=== PATIENT | male | born 1985 | race Caucasian/White ===

== ENCOUNTER 2017-08-11 11:24 | Emergency (ER) | payer SELFPAY ==
[~2017-08-11] VITALS: Ht 180.3 cm; Wt 68.0 kg
[2017-08-11 11:27] VITALS: BP 135/94; PULSE 85; RESP 13; TEMP 99.2; O2SAT 98
--- NOTE | 2017-08-11 11:41 | PD ---
HPI Chief Complaint: Pain: Acute or Chronic Time Seen by Provider: 11:32 Travel History International Travel<30 days: No Contact w/Intl Traveler<30days: No Traveled to known affect area: No History of Present Illness HPI 31-year-old male presents the emergency department with one week history of right hip pain. Patient states he moved a fish tank at his home about a week ago with sudden onset of right-sided hip pain. Patient states the pain is continued and not improved, to the point of disrupting his sleep and having difficulty finding a comfortable position. Patient denies numbness or tingling. He denies back pain. Pain is specific to the right hip. He has no signs of infection. He has no known drug allergies. [facility] Social History Alcohol Use: Yes Tobacco Use: Yes Substance Use: Yes Allergies-Medications (Allergen,Severity, Reaction): Coded Allergies: No Known Allergies (Verified Allergy, Unknown, 08/11/17) Reported Meds & Prescriptions Reported Meds & Active Scripts Active Mapap Extra Strength (Acetaminophen) 500 Mg Tab 1,000 Mg PO Q6HR PRN Flexeril (Cyclobenzaprine HCl) 10 Mg Tab 10 Mg PO TID Ibuprofen 800 Mg Tab 800 Mg PO Q8H PRN Review of Systems Except as stated in HPI: all other systems reviewed are Neg General / Constitutional: No: Fever Eyes: No: Visual changes HENT: No: Headaches Cardiovascular: No: Chest Pain or Discomfort Respiratory: No: Shortness of Breath Gastrointestinal: No: Abdominal Pain Genitourinary: No: Dysuria Musculoskeletal: Positive: Myalgias, Arthralgias, Limited ROM, Pain (see history of present illness) Skin: No Rash Neurologic: No: Weakness Psychiatric: No: Depression Endocrine: No: Polydipsia Hematologic/Lymphatic: No: Easy Bruising Physical Exam Narrative GENERAL: Patient is in moderate distress. SKIN: Warm and dry. Normal color. Normal turgor. No signs of infection. HEAD: Atraumatic. Normocephalic. EYES: Pupils equal and round. No scleral icterus. No injection or drainage. ENT: No nasal bleeding or discharge. Mucous membranes pink and moist. Pharynx is clear. Airway is patent. NECK: Trachea midline. Supple and nontender. CARDIOVASCULAR: Regular rate and rhythm. RESPIRATORY: No accessory muscle use. Clear to auscultation. Breath sounds equal bilaterally. MUSCULOSKELETAL: Extremities without clubbing, cyanosis, or edema. No obvious deformities. No significant low back pain is appreciated with palpation. Patient has right hip pain with palpation of the deep structures, as well as with flexion, extension, and rotation of the right hip. Pain is not localized to the bursa, but rather the hip capsule. There is no pain in the hamstrings or quadriceps. There is no ecchymosis distally. NEUROLOGICAL: Awake and alert. No obvious cranial nerve deficits. Motor grossly within normal limits. Five out of 5 muscle strength in the arms and legs. Normal speech. PSYCHIATRIC: Appropriate mood and affect; insight and judgment normal. Data Data Last Documented VS Vital Signs Date Time Temp Pulse Resp B/P (MAP) Pulse Ox O2 Delivery O2 Flow Rate FiO2 08/11/17 11:27 99.2 85 13 135/94 (108) 98 Orders Orders Ed Discharge Order (08/11/17 11:48) [facility] Medical Decision Making Medical Screen Exam Complete: Yes Emergency Medical Condition: Yes Differential Diagnosis Left hip sprain.. Muscle sprain. Sciatica. Bursitis. Tendinitis. Narrative Course Patient is medically stable at time of exam Radiographic imaging is not felt warranted based on my history and physical. Patient was treated with ibuprofen 800 mg up to 3 times daily with food #60. Patient also given Flexeril 10 mg up to 3 times daily #30. Patient also given Mapap, 500 mg 2 tabs every 6 hours when necessary #90. Patient use heat followed by ice as well as gentle stretching. Patient follow with [facility] as needed. Diagnosis Primary Impression: Sprain of right hip Qualified Codes: S73.101A - Unspecified sprain of right hip, initial encounter Referrals: [facility] Patient Instructions: General Instructions, Muscle Spasm (ED), Piriformis Syndrome (ED), Piriformis Syndrome Exercises (GEN) Additional Instructions: Radiographic imaging is not felt warranted based on my history and physical. Patient was treated with ibuprofen 800 mg up to 3 times daily with food #60. Patient also given Flexeril 10 mg up to 3 times daily #30. Patient also given Mapap, 500 mg 2 tabs every 6 hours when necessary #90. Patient use heat followed by ice as well as gentle stretching. Patient follow with [facility] as needed. Med/Other Pt SpecificInfo: Prescription(s) given Scripts Acetaminophen (Mapap Extra Strength) 500 Mg Tab 1000 MG PO Q6HR Y for PAIN, #90 TAB 0 Refills Prov: Jason Pace MD 08/11/17 Cyclobenzaprine (Flexeril) 10 Mg Tab 10 MG PO TID for Muscle Spasm, #30 TAB 0 Refills Prov: Jason Pace MD 08/11/17 Ibuprofen (Ibuprofen) 800 Mg Tab 800 MG PO Q8H Y for Pain/Inflammation, #60 TAB 0 Refills Prov: Jason Pace MD 08/11/17 Disposition: 01 DISCHARGE HOME Condition: Stable Shaggy Guillaume Aug 11, 2017 11:41
[2017-08-11] MEDS ORDERED: CYCL10TA PO (11:44)
[2017-08-11] MEDS ORDERED: MAPA500T13 PO (11:44)
[2017-08-11] MEDS ORDERED: IBUP1TAB7 PO (11:44)
[2017-08-11] MEDS ORDERED: IBUPROFEN 800 MG TAB PO ONE (12:15)
== END 2017-08-11 12:17 | disposition home or self-care (01) ==
LOC: NEPK 11:24
DX: S73.101A Unspecified sprain of right hip, initial encounter (principal); Z72.0 Tobacco use; X50.0XXA Overexertion from strenuous movement or load, initial encounter
CPT/HCPCS: 99283

== ENCOUNTER 2017-12-31 10:33 | Emergency (ER) | payer OTHER ==
[~2017-12-31] VITALS: Ht 180.3 cm; Wt 85.0 kg
[~2017-12-31 10:33] MED LIST: CYCL10TA PO; IBUP1TAB7 PO; MAPA500T13 PO
[2017-12-31 10:42] VITALS: BP 137/79; PULSE 117; RESP 17; TEMP 98.4; O2SAT 97
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
== END 2017-12-31 13:55 ==
LOC: NEPC 10:33
DX: S91.311A Laceration without foreign body, right foot, initial encounter (principal); S00.83XA Contusion of other part of head, initial encounter; F17.210 Nicotine dependence, cigarettes, uncomplicated; Y04.2XXA Assault by strike against or bumped into by another person, initial encounter
CPT/HCPCS: 12001; 70450; 70486

== ENCOUNTER 2018-02-20 08:49 | Inpatient (IN) | payer OTHER ==
[~2018-02-20] VITALS: Ht 180.3 cm; Wt 90.0 kg
[2018-02-20 09:00] VITALS: BP 128/70; PULSE 75; RESP 18; TEMP 98.4; O2SAT 96
--- NOTE | 2018-02-20 09:20 | PD ---
HPI Chief Complaint: Musculoskeletal Complaint Time Seen by Provider: 09:09 Travel History International Travel<30 days: No Contact w/Intl Traveler<30days: No Traveled to known affect area: No History of Present Illness HPI 32-year-old male complains of right ankle pain. Patient fell this morning. Patient denies any loss of consciousness. Patient denies headache or neck pain. Patient denies any chest pain or shortness of breath. Patient denies abdominal pain. Patient complains severe sharp pain localized the right ankle. Patient denies any pain radiation. Patient states that the pain is worse with weightbearing. On a scale of 1-10 the pain is a 9. Patient last meal was 5:00 o'clock this morning. Patient denies any medical problem. Patient is not on any routine medications. Patient denies any allergy. [facility] Social History Alcohol Use: Yes (1/5 of vodka daily) Tobacco Use: Yes (5/day) Substance Use: Yes (heroine) Allergies-Medications (Allergen,Severity, Reaction): Coded Allergies: No Known Allergies (Verified Allergy, Unknown, 08/11/17) Reported Meds & Prescriptions Reported Meds & Active Scripts Active No Active Prescriptions or Reported Medications Review of Systems General / Constitutional: No: Fever Eyes: No: Visual changes HENT: No: Headaches Cardiovascular: No: Chest Pain or Discomfort Respiratory: No: Shortness of Breath Gastrointestinal: No: Abdominal Pain Genitourinary: No: Dysuria Musculoskeletal: Positive: Pain Skin: No Rash Neurologic: No: Weakness Psychiatric: No: Depression Endocrine: No: Polydipsia Hematologic/Lymphatic: No: Easy Bruising Physical Exam Narrative GENERAL: Well-nourished, well-developed patient. SKIN: Focused skin assessment warm/dry. HEAD: Normocephalic. EYES: No scleral icterus. No injection or drainage. NECK: Supple, trachea midline. No JVD or lymphadenopathy. CARDIOVASCULAR: Regular rate and rhythm without murmurs, gallops, or rubs. RESPIRATORY: Breath sounds equal bilaterally. No accessory muscle use. GASTROINTESTINAL: Abdomen soft, non-tender, nondistended. MUSCULOSKELETAL: Patient had marked soft tissue swelling tenderness diffuse over the right ankle joint. Full range of motion of the toes. Good DP pulse BACK: Nontender without obvious deformity. No CVA tenderness. Data Data Last Documented VS Vital Signs Date Time Temp Pulse Resp B/P (MAP) Pulse Ox O2 Delivery O2 Flow Rate FiO2 02/20/18 09:32 98.4 75 18 128/70 (89) 96 Room Air Orders Orders Ankle, Complete ([id number]) (02/20/18 ) Splint Or Brace Apply/Monitor (02/20/18 09:41) Complete Blood Count With Diff (02/20/18 09:46) Basic Metabolic Panel (Bmp) (02/20/18 09:46) Prothrombin Time / Inr (Pt) (02/20/18 09:46) Act Partial Throm Time (Ptt) (02/20/18 09:46) Iv Access Insert/Monitor (02/20/18 09:46) MDM Medical Decision Making Medical Screen Exam Complete: Yes Emergency Medical Condition: Yes Differential Diagnosis Differential diagnosis includes sprain, fracture, dislocation. Narrative Course 32-year-old male with right ankle injury. Diagnosis Primary Impression: Trimalleolar fracture of right ankle Qualified Codes: S82.851A - Displaced trimalleolar fracture of right lower leg , initial encounter for closed fracture Admitting Information Admitting Physician Requests: Admit Scripts No Active Prescriptions or Reported Meds Hussein Roland MD February 20, 2018 09:20
[2018-02-20 09:32] VITALS: BP 128/70; PULSE 75; RESP 18; TEMP 98.4; O2SAT 96
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
[2018-02-20] MEDS ORDERED: ACETAMINOPHEN/HYDROcodone 325 MG/5 MG TAB PO PRN (10:15)
[2018-02-20] MEDS ORDERED: NALOXONE HCL 0.4 MG/ML AMP IV PUSH PRN (10:15)
[2018-02-20 10:51] LABS: AUTOMATED NEUTROPHIL # 4.2 TH/MM3 (1.8-7.7); BASOPHIL # 0.1 TH/MM3 (0-0.2); BASOPHIL % 0.6 % (0.0-2.0); EOSINOPHIL # 0.1 TH/MM3 (0-0.4); EOSINOPHIL % 1.2 % (0.0-4.0); HEMATOCRIT 42.9 % (39.0-51.0); HEMOGLOBIN 14.9 GM/DL (13.0-17.0); LYMPH % 34.3 % (9.0-44.0); LYMPHOCYTE # 2.7 TH/MM3 (1.0-4.8); MEAN CELL VOLUME 92.4 FL (80.0-100.0); MEAN CORPUSCULAR HEMOGLOBIN 32.1 PG (27.0-34.0); MEAN CORPUSCULAR HGB CONC 34.7 % (32.0-36.0); MEAN PLATELET VOLUME 7.8 FL (7.0-11.0); MONO % 11.7 % (0.0-8.0); MONOCYTE # 0.9 TH/MM3 (0-0.9); NEUT % 52.2 % (16.0-70.0); PLATELET COUNT 253 TH/MM3 (150-450); RED BLOOD COUNT 4.64 MIL/MM3 (4.50-5.90); RED CELL DISTRIBUTION WIDTH 12.6 % (11.6-17.2)
[2018-02-20] MEDS: ACETAMINOPHEN/HYDROcodone 325 MG/10 MG TAB PO PRN ×3 (10:59→19:52)
[2018-02-20 11:03] LABS: PROTHROMBIN TIME - PATIENT 9.9 SEC (9.8-11.6)
[2018-02-20] MEDS: HEPARIN SODIUM - SQ 10,000 UNITS/ML VIAL SQ SCH ×2 (11:19→15:14)
[2018-02-20 11:42] LABS: BICARBONATE 24.2 MEQ/L (21.0-32.0); CALCIUM 9.3 MG/DL (8.5-10.1); CREATININE 0.94 MG/DL (0.60-1.30)
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
[2018-02-20 12:35] VITALS: BP 128/74
[2018-02-20 15:16] VITALS: BP 160/102; PULSE 82; RESP 19; TEMP 98; O2SAT 98
[2018-02-20 17:34] VITALS: O2SAT 98
--- NOTE | 2018-02-20 18:07 | MB ---
cc: Jeremiah Esqueda MD DATE: 02/20/2018 REASON FOR CONSULTATION: Right ankle fracture. HISTORY OF PRESENT ILLNESS: The patient is a 32-year-old man who is currently incarcerated in senior care. The patient sustained an injury when his right ankle slipped on bread tray. The patient felt immediate pain about the right ankle. Describes it as 9/10. He did not have any loss of consciousness. He does not describe previous problems with the ankle. He does have a little bit of numbness about the toes. The ER physician had contacted me. I recommended the patient be placed into a cold machine and the patient was admitted to the hospital. PAST MEDICAL HISTORY: Negative. PAST SURGICAL HISTORY: Negative. ALLERGIES: NONE. FAMILY HISTORY: Noncontributory. SOCIAL HISTORY: The patient quit smoking and previously drank alcohol. PHYSICAL EXAMINATION: VITAL SIGNS: The patient's temperature is 98.0, pulse is 82, respirations 19, blood pressure 160/102 GENERAL: The patient is awake, alert and oriented x 3. Normal affect insight and judgment. Patient is accompanied by an school traffic guard individual from the senior care. He is currently handcuffed to the bedside. He is in no acute distress. HEENT: His head is atraumatic. Oropharynx is moist. Extraocular muscles are intact. LUNGS: No audible wheeze with normal respiratory effort. ABDOMEN: Soft, nontender and nondistended. BACK: Shows No CVA tenderness. EXTREMITIES: Right upper extremity has good active range of motion. Right lower extremity is currently splinted. He can move the toes to a minor degree. He has brisk cap refill about the toes. Normal sensation distally. Left lower extremity shows no swelling about the knee or the ankle. LABORATORY STUDIES: Shows white cell count of 8.0, hematocrit is 42.9, platelets of 253. Creatinine of 0.94. Glucose is 91. IMAGING STUDIES: X-rays of the right ankle reveal a trimalleolar ankle fracture with significant displacement of the medial malleolus. The lateral malleolus and posterior malleolus are mildly displaced. IMPRESSION: Right ankle trimalleolar fracture with significant displacement. MEDICAL DECISION MAKING: I discussed the diagnosis in detail with the patient. We discussed operative and nonoperative management. I do recommend surgical management for this condition. Nonoperative management has significant chance of developing long-term issues with the ankle including pain, loss of motion, potentially instability, subluxation and difficulty ambulating. We discussed the types of surgical management including open reduction and internal fixation. We discussed plates and screws versus percutaneous fixation depending on swelling. We discussed the risks and benefits of surgical management. He understands the risks of surgery include, but not limited to injury to nerves or blood vessels, bleeding, infection, failure of hardware, need for reoperation, continued pain, loss of range of motion of associated joints, DVT, pulmonary embolus, pneumonia and . The patient wants to move forward with surgical management. All questions have been answered. MD RENATA Mohan/LEIGH , 05:36 PM , 06:06 PM
[2018-02-20] MEDS: DOCUSATE SODIUM 50 MG/SENNA 8.6 MG TAB PO SCH (19:52)
[2018-02-20 19:55] VITALS: BP 142/105; PULSE 83; RESP 16; TEMP 98.2; O2SAT 96
[2018-02-20] MEDS ORDERED: INSULIN HUMAN REGULAR 1,000 UNITS/10 ML VIAL SQ PRN (20:30)
[2018-02-20] MEDS ORDERED: LACTATED RINGER'S 1000 ML IV PRN (20:30)
[2018-02-20] MEDS ORDERED: CHLORHEXIDINE GLUCONATE 2 % 1 PACK (2 CLOTHS) TOPICAL PRN (20:30)
[2018-02-20] MEDS ORDERED: SODIUM CHLORID 0.9% 500 ML IV PRN (20:30)
[2018-02-20] MEDS ORDERED: POVIDONE IODINE 5% (ANTISEPSIS KIT) 4 APPLICATIONS EACH NARE PRN (20:30)
[2018-02-20] MEDS ORDERED: METOPROLOL TARTRATE 25 MG TAB PO PRN (20:30)
[2018-02-21 00:20] VITALS: BP 123/69; PULSE 79; RESP 16; TEMP 98.2; O2SAT 99
[2018-02-21] MEDS: ACETAMINOPHEN/HYDROcodone 325 MG/10 MG TAB PO PRN ×4 (00:22→21:40)
[2018-02-21 04:10] VITALS: BP 138/70; PULSE 65; RESP 16; TEMP 97.9; O2SAT 96
[2018-02-21 05:41] LABS: AUTOMATED NEUTROPHIL # 2.8 TH/MM3 (1.8-7.7); BASOPHIL % 0.6 % (0.0-2.0); EOSINOPHIL # 0.1 TH/MM3 (0-0.4); EOSINOPHIL % 1.9 % (0.0-4.0); HEMATOCRIT 41.8 % (39.0-51.0); HEMOGLOBIN 14.6 GM/DL (13.0-17.0); LYMPH % 43.5 % (9.0-44.0); LYMPHOCYTE # 2.8 TH/MM3 (1.0-4.8); MEAN CELL VOLUME 92.3 FL (80.0-100.0); MEAN CORPUSCULAR HEMOGLOBIN 32.2 PG (27.0-34.0); MEAN CORPUSCULAR HGB CONC 34.9 % (32.0-36.0); MEAN PLATELET VOLUME 7.9 FL (7.0-11.0); MONO % 10.3 % (0.0-8.0); MONOCYTE # 0.7 TH/MM3 (0-0.9); NEUT % 43.7 % (16.0-70.0); PLATELET COUNT 237 TH/MM3 (150-450); RED BLOOD COUNT 4.53 MIL/MM3 (4.50-5.90); RED CELL DISTRIBUTION WIDTH 12.6 % (11.6-17.2); WHITE BLOOD COUNT 6.5 TH/MM3 (4.0-11.0)
[2018-02-21 06:12] LABS: BICARBONATE 26.8 MEQ/L (21.0-32.0); CALCIUM 9.1 MG/DL (8.5-10.1); CREATININE 0.79 MG/DL (0.60-1.30)
[2018-02-21 07:45] VITALS: O2SAT 95
[2018-02-21 07:46] VITALS: BP 118/66; PULSE 55; RESP 19; TEMP 98; O2SAT 97
[2018-02-21] MEDS ORDERED: GENTAMICIN SULFATE 80 MG/2 ML VIAL ONE (08:23)
[2018-02-21] MEDS ORDERED: VANCOMYCIN HCL 1000 MG VIAL ONE (08:23)
[2018-02-21] MEDS ORDERED: ceFAZolin 2 GM PREMIX 50 ML ONE (08:23)
[2018-02-21] MEDS: DOCUSATE SODIUM 50 MG/SENNA 8.6 MG TAB PO SCH ×2 (08:27→21:39)
[2018-02-21] MEDS ORDERED: ACETAMINOPHEN 1000 MG/100 ML 100 ML IV ONE (09:27)
[2018-02-21] MEDS ORDERED: KETAMINE HCL 50 MG/5 ML SYRINGE ONE (09:54)
[2018-02-21] MEDS ORDERED: FAMOTIDINE 20 MG/2 ML VIAL ONE (09:55)
--- NOTE | 2018-02-21 10:30 | HHI.PR ---
Subjective Remarks Follow-up for right ankle trimalleolar fracture. The patient reports his pain is fairly well controlled, rated 5/10. He denies any other medical complaints. Denies fevers/chills, chest pain, shortness of breath, or abdominal complaints. Last bowel movement was on Monday. Going to OR today. Objective Vitals Vital Signs Date Time Temp Pulse Resp B/P (MAP) Pulse Ox O2 Delivery O2 Flow Rate FiO2 02/21/18 07:46 98.0 55 19 118/66 (83) 97 02/21/18 04:10 97.9 65 16 138/70 (92) 96 02/21/18 00:20 98.2 79 16 123/69 (87) 99 02/20/18 19:55 98.2 83 16 142/105 (117) 96 02/20/18 17:34 98 21 02/20/18 15:16 98.0 82 19 160/102 (121) 98 02/20/18 12:35 72 18 128/74 (92) 96 02/20/18 12:00 18 I/O 02/20/18 02/20/18 02/20/18 02/21/18 02/21/18 02/21/18 07:00 15:00 23:00 07:00 15:00 23:00 Intake Total 360 ml Balance 360 ml Intake Oral 360 ml # Voids 2 # Bowel Movements 0 Result Diagram: 02/21/18 0421 02/21/18 0421 Imaging Last Impressions Ankle X-Ray 02/20/18 0000 Signed Impressions: CONCLUSION: Moderately displaced trimalleolar right ankle fracture Objective Remarks GENERAL: Well-nourished, well-developed male patient in [facility]. SKIN: Warm and dry. No rash. HEENT: Normocephalic. Atraumatic. Pupils equal and round. Mucous membranes pink and moist. CARDIOVASCULAR: Regular rate and rhythm. No murmur appreciated. RESPIRATORY: No accessory muscle use. Clear to auscultation. Breath sounds equal bilaterally. GASTROINTESTINAL: Abdomen soft, non-tender, nondistended. Normoactive bowel sounds x4. MUSCULOSKELETAL: No obvious deformities. Extremities without clubbing, cyanosis , or edema. Right lower extremity in splint/King, distal sensation intact with brisk capillary refill. NEUROLOGICAL: Awake and alert. No obvious cranial nerve deficits. Motor grossly within normal limits. Moving all extremities spontaneously. Normal speech. PSYCHIATRIC: Appropriate mood and affect; insight and judgment normal. Medications and IVs Current Medications Medications (Trade) Dose Ordered Sig/Rachel Route Start Time Stop Time Status Last Admin ([place] 5-325 Mg) 1 tab Q4H PRN PO 02/20/18 10:15 ([place] 10-325 Mg) 1 tab Q4H PRN PO 02/20/18 10:15 02/21/18 04:44 (Morphine Inj) 4 mg Q3H PRN IV PUSH 02/20/18 10:45 (Narcan Inj) 0.4 mg UNSCH PRN IV PUSH 02/20/18 10:15 (Hailey-Colace) 1 tab BID PO 02/20/18 21:00 02/20/18 19:52 Lactated Ringer's 1,000 ml @ 30 mls/hr Q24H PRN IV 02/20/18 20:30 02/23/18 20:29 Sodium Chloride 500 ml @ 30 mls/hr [id number] PRN IV 02/20/18 20:30 02/23/18 20:29 (Lopressor) 25 mg [place]ITH PRN PO 02/20/18 20:30 02/23/18 20:29 (Betadine 5% Antisepsis Kit) 1 applic [place]ITH PRN EACH NARE 02/20/18 20:30 02/23/18 20:29 (Chlorhexidine 2% Cloth) 3 pack [place] PRN TOPICAL 02/20/18 20:30 02/23/18 20:29 (NovoLIN R INJ) See Protocol Table ... WIN[place]MITH PRN SQ 02/20/18 20:30 02/23/18 20:29 A/P Assessment and Plan 32-year-old male with no significant past medical history presents to the ED from [facility] after a slip and fall, found to have right ankle fracture Moderately displaced right trimalleolar ankle fracture: acute. S/p mechanical trip and fall. -Continue pain control with [place] prn, IV morphine prn breakthrough pain -Ortho consulted, plan for surgery today -CBC/BMP stable -Physical therapy, weightbearing status per Ortho post surgery Tobacco use, prior history of cocaine/heroin use: Does not appear to be in withdrawal -Monitor for any signs of withdrawal -Will provide nicotine patch if needed DVT prophylaxis: Teds/SCDs to the [facility] Discharge Planning Going to OR today. Further disposition to follow. Patient medically stable. Will need ortho weightbearing recommendations and clearance prior to discharge. Lisandra Khalil PA-C February 21, 2018 10:30 am
[2018-02-21] MEDS ORDERED: BUPIVACAINE/EPINEPHRINE 0.25% PF 10 ML VIAL INFIL ONE (10:57)
[2018-02-21] MEDS ORDERED: GLYCOPYRROLATE 1 MG/5 ML SYRINGE IV PUSH ONE (12:00)
[2018-02-21] MEDS ORDERED: ROCURONIUM INJ 50 MG/5 ML SYRINGE IV PUSH ONE (12:00)
[2018-02-21] MEDS ORDERED: ONDANSETRON HCL 4 MG/2 ML VIAL IV ONE (12:00)
[2018-02-21] MEDS ORDERED: LACTATED RINGER'S 1000 ML INJ 1,000 ML IV ONE (12:00)
[2018-02-21] MEDS ORDERED: PROPOFOL 200 MG/20 ML AMP IV ONE (12:00)
[2018-02-21] MEDS ORDERED: DO NOT ADM ANY ANTICOAGULANT DRUGS PRN (12:00)
[2018-02-21] MEDS ORDERED: DEXAMETHASONE SOD PHOS 4 MG/ML VIAL IV ONE (12:00)
[2018-02-21] MEDS ORDERED: LIDOCAINE HCL 1% PF 5 ML SYRINGE OTHER ONE (12:00)
[2018-02-21] MEDS ORDERED: NEOSTIGMINE 5 MG/5 ML SYRINGE IV PUSH ONE (12:00)
--- NOTE | 2018-02-21 12:07 | PD.OP ---
cc: Jeremiah Esqueda MD Operative Report Date of Surgery: February 21, 2018 Preoperative Diagnosis: Right ankle trimalleolar fracture with displacement Postoperative Diagnosis: Same Procedure: Right ankle open reduction and internal fixation of trimalleolar fracture without fixation of the lip Anesthesia: General Surgeon: Jeremiah Esqueda Digital Cartographic Technician(s): DEVENDRA Kumar The surgical procedure was assisted by my Advanced Registered Nurse Practitioner. My LATHE MECHANIC presence was necessary throughout this case for the manipulation and positioning of the surgical extremity. My LATHE MECHANIC was assisting me throughout the duration of this procedure. The skill set of an Advance Registered Nurse Practitioner was medically necessary to complete this procedure. During the surgical case, the operator technician was working at the back table and the Advance Registered Nurse Practitioner was directly assisting me. Operation and Findings: Tourniquet time: 0 minutes at 250 mmHg of pressure Estimated blood loss: 125 cc The patient received intravenous vancomycin and Ancef. After the appropriate anesthesia was administered, the patient's leg was prepped and draped in the usual sterile fashion. We made a standard incision over the lateral aspect of the ankle. We then dissected through the deep fascia down to the fracture site. The edges of the fracture were identified. Hematoma was evacuated and the fracture was irrigated. There was a moderate sized fragment that was displaced from the anterior portion of the oblique fracture of the lateral malleolus. We replaced this fragment back anatomically. The fracture was anatomically reduced with a reduction clamp, verified both visually and via fluoroscopy. A 2.7 lag screw was placed from anterior to posterior obliquely in standard fashion with good fixation of the fracture site. We then applied a pre-contoured Synthes lateral malleolus plate over the fracture. We initially secured the plate using a non-locking screw in the oblong screw hole. This gave nice compression of the plate to the bone. We then secured the fracture with multiple distal and proximal locking screws. We made an incision on the medial aspect of the ankle and placed 2 guidewires in a parallel fashion up the medial malleolus. The medial malleolus remained anatomic during this procedure. We measured the appropriate screws. 2 individual Synthes 4.0 stainless steel partially threaded, short thread, cannulated screws were placed. Both had excellent purchase. The fracture remained in good position. We took final fluoroscopic imaging of the ankle, including an AP, lateral, and mortise view. The fracture and the mortise were anatomic. We found no intra- articular penetration of the screws. The patient had full range of motion of the ankle with no crepitus. No instability was noted. When we evaluated the posterior malleolus this was now anatomic as well as the mortise. This fracture was less than 25% and we decided it did not require internal fixation. We irrigated the incisions thoroughly. We then closed the deep fascia as much as possible with 0 Vicryl. Skin was closed on both sides with 2-0 Vicryl followed by 3-0 nylon. The leg was dressed and a splint was applied. The postoperative plan is for nonweightbearing to the extremity. DVT prophylaxis will be with aspirin 325 mg p.o. daily for 1 month. Jeremiah Esqueda MD February 21, 2018 12:07
[2018-02-21] MEDS ORDERED: HYDR-3583 PO (12:08)
[2018-02-21] MEDS ORDERED: ASPI-183 PO (12:08)
[2018-02-21] MEDS ORDERED: MAGNESIUM HYDROXIDE SUSP 30 ML CUP PO PRN (12:15)
[2018-02-21] MEDS ORDERED: PHARMACY INFORMATION XX ONE (12:15)
[2018-02-21] MEDS ORDERED: NALOXONE HCL 0.4 MG/ML AMP IV PUSH PRN (12:15)
[2018-02-21] MEDS ORDERED: NURSING INFORMATION XX PRN (12:15)
[2018-02-21] MEDS ORDERED: MORPHINE SULFATE 4 MG/ML INJ IV PUSH PRN (12:15)
[2018-02-21] MEDS ORDERED: ONDANSETRON ODT 4 MG TAB PO PRN (12:15)
[2018-02-21] MEDS ORDERED: ACETAMINOPHEN/HYDROcodone 325 MG/10 MG TAB PO PRN (12:15)
[2018-02-21] MEDS ORDERED: Post-op Orders (for Pharmacy) XX ONE (12:15)
[2018-02-21] MEDS ORDERED: diphenhydrAMINE HCL 25 MG CAP PO PRN (12:15)
[2018-02-21] MEDS: DEXT 5%-NACL 0.45% 1000 ML INJ 1,000 ML IV SCH (12:50)
[2018-02-21] MEDS ORDERED: MIDAZOLAM HCL 2 MG/2 ML VIAL ONE (12:50)
[2018-02-21] MEDS ORDERED: *morphine SULFATE 4 MG/ML PERIprocedure ONLY ONE ×2 (12:51→13:04)
[2018-02-21] MEDS ORDERED: ONDANSETRON HCL 4 MG/2 ML VIAL ONE (12:52)
[2018-02-21] MEDS ORDERED: CRUTMIS25 (12:54)
[2018-02-21 15:35] VITALS: BP 148/91; PULSE 70; RESP 19; TEMP 98.1; O2SAT 97
[2018-02-21] MEDS: MORPHINE SULFATE 4 MG/ML INJ IV PUSH PRN ×2 (16:12→16:28)
--- NOTE | 2018-02-21 17:55 | RADRPT ---
EXAM DATE: 02/21/2018 1:10 PM EDT AGE/SEX: 32 years / Male INDICATIONS: Orif right ankle. CLINICAL DATA: This is the patient's subsequent encounter. Patient reports that signs and symptoms h ave been present for 2 days and indicates a pain score of Nonresponsive. MEDICAL/SURGICAL HISTORY: None. None. COMPARISON: No prior Witt exams available for comparison. FINDINGS: There is a plate along the lateral aspect of the fibula secured by 5 screws. There is a screw seen th rough the lateral malleolus. 2 screws are seen to the medial malleolus. All the hardware is well plac ed. The ankle is normally aligned. CONCLUSION: Successful ORIF. Electronically signed by: Amrit Zarco MD 02/21/2018 5:53 PM EDT
[2018-02-21 20:00] VITALS: BP 167/74; PULSE 98; RESP 17; TEMP 97.9; O2SAT 96
[2018-02-22] VITALS: BP 132/81; PULSE 73; RESP 18; TEMP 98.3; O2SAT 95
[2018-02-22] MEDS: MORPHINE SULFATE 4 MG/ML INJ IV PUSH PRN ×2 (02:09→08:49)
[2018-02-22] MEDS: DEXT 5%-NACL 0.45% 1000 ML INJ 1,000 ML IV SCH ×3 (02:13→18:01)
[2018-02-22 04:00] VITALS: BP 132/68; PULSE 75; RESP 17; TEMP 97.6; O2SAT 96
[2018-02-22] MEDS: ACETAMINOPHEN/HYDROcodone 325 MG/10 MG TAB PO PRN ×3 (05:45→18:28)
[2018-02-22 07:35] VITALS: BP 128/62; PULSE 74; RESP 18; TEMP 98.2; O2SAT 96
[2018-02-22 08:20] VITALS: O2SAT 97
[2018-02-22] MEDS: ASPIRIN 325 MG TAB PO SCH (08:49)
[2018-02-22] MEDS: MULTIVITAMINS/MINERALS THERAPEUTIC TAB PO SCH (08:50)
[2018-02-22] MEDS: DOCUSATE SODIUM 50 MG/SENNA 8.6 MG TAB PO SCH (08:50)
--- NOTE | 2018-02-22 09:43 | HHI.PR ---
Subjective Remarks 32 years old male came from the present with right ankle pain after he sustained a fall, ankle pain is 9 out of 10. Patient denied losing consciousness or hitting his head, no headache or neck pain, no chest pain or short of breath no dizziness or lightheaded no abdominal pain diarrhea constipation, in ED orthopedic consulted, decided on taking patient to surgery tomorrow since patient already had a meal at 5 AM this morning 02-21 Follow-up for right ankle trimalleolar fracture. The patient reports his pain is fairly well controlled, rated 5/10. He denies any other medical complaints. Denies fevers/chills, chest pain, shortness of breath, or abdominal complaints. Last bowel movement was on Monday. Going to OR today. 02-22 PATIENT HAD SURGERY YESTERDAY Date of Surgery: February 21, 2018 Preoperative Diagnosis: Right ankle trimalleolar fracture with displacement Postoperative Diagnosis: Same Procedure: Right ankle open reduction and internal fixation of trimalleolar fracture without fixation of the lip GUARD AT BEDSIDE STILL TAKING MORPHINE SWITCH TO PO MEDS FOR PAIN ONLY PT AND OT TO EVAL AND TREAT Objective Vitals Vital Signs Date Time Temp Pulse Resp B/P (MAP) Pulse Ox O2 Delivery O2 Flow Rate FiO2 02/22/18 07:35 98.2 74 18 128/62 (84) 96 02/22/18 04:00 97.6 75 17 132/68 (89) 96 02/22/18 00:00 98.3 73 18 132/81 (98) 95 02/21/18 20:00 97.9 98 17 167/74 (105) 96 02/21/18 15:35 98.1 70 19 148/91 (110) 97 02/21/18 13:15 98.1 72 18 149/88 (108) 98 Room Air 02/21/18 13:00 75 18 138/78 (98) 98 Room Air 02/21/18 12:44 98.0 87 18 139/78 (98) 100 Room Air I/O 02/21/18 02/21/18 02/21/18 02/22/18 02/22/18 02/22/18 07:00 15:00 23:00 07:00 15:00 23:00 Intake Total 360 ml 1200 ml 2100 ml Output Total 425 ml 1300 ml Balance 360 ml 775 ml 800 ml Intake Oral 360 ml 1000 ml IV Total 1100 ml Other 1200 ml Output Urine Total 300 ml 1300 ml Estimated Blood Loss 125 ml # Voids 2 # Bowel Movements 0 Result Diagram: 02/21/18 0421 02/21/18 0421 Other Results Laboratory Tests Test 02/20/18 10:20 02/21/18 04:21 White Blood Count 8.0 TH/MM3 6.5 TH/MM3 Red Blood Count 4.64 MIL/MM3 4.53 MIL/MM3 Hemoglobin 14.9 GM/DL 14.6 GM/DL Hematocrit 42.9 % 41.8 % Mean Corpuscular Volume 92.4 FL 92.3 FL Mean Corpuscular Hemoglobin 32.1 PG 32.2 PG Mean Corpuscular Hemoglobin Concent 34.7 % 34.9 % Red Cell Distribution Width 12.6 % 12.6 % Platelet Count 253 TH/MM3 237 TH/MM3 Mean Platelet Volume 7.8 FL 7.9 FL Neutrophils (%) (Auto) 52.2 % 43.7 % Lymphocytes (%) (Auto) 34.3 % 43.5 % Monocytes (%) (Auto) 11.7 % 10.3 % Eosinophils (%) (Auto) 1.2 % 1.9 % Basophils (%) (Auto) 0.6 % 0.6 % Neutrophils # (Auto) 4.2 TH/MM3 2.8 TH/MM3 Lymphocytes # (Auto) 2.7 TH/MM3 2.8 TH/MM3 Monocytes # (Auto) 0.9 TH/MM3 0.7 TH/MM3 Eosinophils # (Auto) 0.1 TH/MM3 0.1 TH/MM3 Basophils # (Auto) 0.1 TH/MM3 0.0 TH/MM3 CBC Comment DIFF FINAL DIFF FINAL Differential Comment Prothrombin Time 9.9 SEC Prothromb Time International Ratio 1.0 RATIO Activated Partial Thromboplast Time 23.1 SEC Blood Urea Nitrogen 14 MG/DL 13 MG/DL Creatinine 0.94 MG/DL 0.79 MG/DL Random Glucose 91 MG/DL 90 MG/DL Calcium Level 9.3 MG/DL 9.1 MG/DL Sodium Level 140 MEQ/L 139 MEQ/L Potassium Level 4.0 MEQ/L 3.7 MEQ/L Chloride Level 105 MEQ/L 103 MEQ/L Carbon Dioxide Level 24.2 MEQ/L 26.8 MEQ/L Anion Gap 11 MEQ/L 9 MEQ/L Estimat Glomerular Filtration Rate 92 ML/MIN 113 ML/MIN Imaging Last Impressions Ankle X-Ray 02/21/18 0000 Signed Impressions: CONCLUSION: Successful ORIF. Objective Remarks GENERAL: Awake alert and oriented 3 talkative and cooperative. Guard is at bedside SKIN: Warm and dry. HEAD: Atraumatic. Normocephalic. EYES: Pupils equal and round. No scleral icterus. No injection or drainage. Extraocular muscles intact ENT: No nasal bleeding or discharge. Mucous membranes pink and moist. Tongue is midline NECK: Trachea midline. No JVD. Supple CARDIOVASCULAR: Regular rate and rhythm. S1-S2 no S3 or S4 no heave or thrill or rub or gallop RESPIRATORY: No accessory muscle use. Clear to auscultation. Breath sounds equal bilaterally. GASTROINTESTINAL: Abdomen soft, non-tender, nondistended. Hepatic and splenic margins not palpable. MUSCULOSKELETAL: Extremities without clubbing, cyanosis, or edema. No obvious deformities. NEUROLOGICAL: Awake and alert. No obvious cranial nerve deficits. Motor grossly within normal limits. Five out of 5 muscle strength in the arms and legs. Normal speech. Right lower extremity is dressed and wrapped Left lower extremity has handcuffed in place PSYCHIATRIC: Appropriate mood and affect; insight and judgment normal. Procedures Date of Surgery: February 21, 2018 Preoperative Diagnosis: Right ankle trimalleolar fracture with displacement Postoperative Diagnosis: Same Procedure: Right ankle open reduction and internal fixation of trimalleolar fracture without fixation of the lip Medications and IVs Current Medications Heparin Sodium (Porcine) (Heparin Inj) 5,000 units Q8H SQ Last administered on 02/20/18at 15:14; Start 02/20/18 at 10:00; Stop 02/20/18 at 17:25; Status DC Acetaminophen/ Hydrocodone Bitart ([place] 5-325 Mg) 1 tab Q4H PRN PO PAIN SCALE 3 TO 5; Start 02/20/18 at 10:15 Acetaminophen/ Hydrocodone Bitart ([place] 10-325 Mg) 1 tab Q4H PRN PO PAIN SCALE 6 TO 10 Last administered on 02/21/18at 04:44; Start 02/20/18 at 10:15; Stop 02/21/18 at 12:14; Status DC Morphine Sulfate (Morphine Inj) 4 mg Q3H PRN IV PUSH BREAKTHROUGH PAIN Last administered on 02/22/18at 08:49; Start 02/20/18 at 10:45 Naloxone HCl (Narcan Inj) 0.4 mg UNSCH PRN IV PUSH SEE LABEL COMMENTS; Start at 10:15; Stop 02/21/18 at 12:14; Status DC Senna/Docusate Sodium (Hailey-Colace) 1 tab BID PO Last administered on at 19:52; Start 02/20/18 at 21:00; Stop 02/21/18 at 12:14; Status DC Lactated Ringer's 1,000 ml @ 30 mls/hr Q24H PRN IV SEE LABEL COMMENTS; Start at 20:30; Stop 02/23/18 at 20:29 Sodium Chloride 500 ml @ 30 mls/hr [id number] PRN IV SEE LABEL COMMENTS; Start at 20:30; Stop 02/23/18 at 20:29 Metoprolol Tartrate (Lopressor) 25 mg LATHE SET UP PERSON PRN PO SEE LABEL COMMENTS; Start 02/20/18 at 20:30; Stop 02/23/18 at 20:29 Povidone Iodine (Betadine 5% Antisepsis Kit) 1 applic LATHE SET UP PERSON PRN EACH NARE SEE LABEL COMMENTS; Start 02/20/18 at 20:30; Stop 02/23/18 at 20:29 Chlorhexidine Gluconate (Chlorhexidine 2% Cloth) 3 pack LATHE SET UP PERSON PRN TOPICAL SEE LABEL COMMENTS; Start 02/20/18 at 20:30; Stop 02/23/18 at 20:29 Insulin Human Regular (NovoLIN R INJ) See Protocol Table ... LATHE SET UP PERSON PRN SQ SEE PROTOCOL TABLE; Start 02/20/18 at 20:30; Stop 02/23/18 at 20:29 Cefazolin Sodium/ Dextrose 50 ml @ As Directed STK-MED ONCE .ROUTE Last administered on 02/21/18at 10:29; Start 02/21/18 at 08:23; Stop 02/21/18 at 08:24 ; Status DC Gentamicin Sulfate (Gentamicin Inj) 240 mg STK-MED ONCE .ROUTE Last administered on 02/21/18at 10:57; Start 02/21/18 at 08:23; Stop 02/21/18 at 08:24 ; Status DC Vancomycin HCl (Vancomycin Inj) 1,000 mg STK-MED ONCE .ROUTE Last administered on 02/21/18at 10:11; Start 02/21/18 at 08:23; Stop 02/21/18 at 08:24; Status DC Acetaminophen 100 ml @ As Directed STK-MED ONCE IV ; Start 02/21/18 at 09:27; Stop 02/21/18 at 09:28; Status DC Ketamine HCl (Ketalar Inj) 50 mg STK-MED ONCE .ROUTE ; Start 02/21/18 at 09:54; Stop 02/21/18 at 09:55; Status DC Famotidine (Pepcid Inj) 20 mg STK-MED ONCE .ROUTE ; Start 02/21/18 at 09:55; Stop 02/21/18 at 09:56; Status DC Bupivacaine HCl/ Epinephrine Bitart (Sensorcaine-Epinephrine Pf 0.25% Inj) 50 ml ONCE ONCE INFIL Last administered on 02/21/18at 10:57; Start 02/21/18 at 10: 57; Stop 02/21/18 at 11:00; Status DC Dextrose/Sodium Chloride 1,000 ml @ 100 mls/hr Q10H IV Last administered on at 02:13; Start 02/21/18 at 12:01 Miscellaneous Information [place] [place] STAT ONCE XX ; Start 02/21/18 at 12:15; Stop 02/21/18 at 12:26; Status DC Senna/Docusate Sodium (Hailey-Colace) 1 tab BID PO Last administered on at 08:50; Start 02/21/18 at 21:00 Magnesium Hydroxide (Milk Of Magnesia Liq) 10 ml Q12H PRN PO CONSTIPATION; Start 02/21/18 at 12:15 Cefazolin Sodium 1000 mg/Sodium Chloride 100 ml @ 200 mls/hr Q8H IV Last administered on 02/22/18at 08:49; Start 02/21/18 at 18:00; Stop 02/22/18 at 10:29 Miscellaneous Information [place] [place] UNSCH PRN XX SEE LABEL COMMENTS; Start 02/21/18 at 12:15 Miscellaneous Medication ([facility] [place]) ONCE ONCE XX ; Start at 12:15; Stop 02/21/18 at 12:26; Status DC Acetaminophen/ Hydrocodone Bitart ([place] 10-325 Mg) 1 tab Q6H PRN PO PAIN LESS THAN 5 ON SCALE; Start 02/21/18 at 12:15; Stop 02/21/18 at 12:15; Status DC Acetaminophen/ Hydrocodone Bitart ([place] 10-325 Mg) 2 tab Q6H PRN PO PAIN GREATER THAN/EQUAL TO 5 Last administered on 02/22/18at 05:45; Start 02/21/18 at 12:15 Ondansetron HCl (Zofran Odt) 4 mg Q4H PRN PO NAUSEA OR VOMITING; Start at 12:15 Multivitamins/ Minerals Therapeutic (Theragran M Tab) 1 tab DAILY PO Last administered on 02/22/18at 08:50; Start 02/22/18 at 09:00 Diphenhydramine HCl (Benadryl) 25 mg Q6H PRN PO ITCHING; Start 02/21/18 at 12: 15 Naloxone HCl (Narcan Inj) 0.4 mg UNSCH PRN IV PUSH RESPIRATORY RATE LESS THAN 10; Start 02/21/18 at 12:15 Morphine Sulfate (Morphine Inj) 2 mg Q3H PRN IV PUSH pain greater than 5; Start 02/21/18 at 12:15 Aspirin (Aspirin) 325 mg DAILY PO Last administered on 02/22/18at 08:49; Start 02/22/18 at 09:00 Miscellaneous Information ([facility] [place] ALL NURSING DEPARTME... UNSCH PRN .XX SEE LABEL COMMENTS; Start 02/21/18 at 12:00; Stop 02/22/18 at 11: 59 Fentanyl Citrate (fentaNYL INJ) 200 mcg STK-MED ONCE .ROUTE ; Start 02/21/18 at 12:50; Stop 02/21/18 at 12:51; Status DC Midazolam HCl (Versed Inj) 2 mg STK-MED ONCE .ROUTE ; Start 02/21/18 at 12:50; Stop 02/21/18 at 12:51; Status DC Morphine Sulfate (*morphine INJ PERIprocedure ONLY) 4 mg STK-MED ONCE .ROUTE Last administered on 02/21/18at 12:52; Start 02/21/18 at 12:51; Stop 02/21/18 at 12:52; Status DC Ondansetron HCl (Zofran Inj) 4 mg STK-MED ONCE .ROUTE Last administered on 02/21at 12:52; Start 02/21/18 at 12:52; Stop 02/21/18 at 12:53; Status DC Morphine Sulfate (*morphine INJ PERIprocedure ONLY) 4 mg STK-MED ONCE .ROUTE Last administered on 02/21/18at 13:04; Start 02/21/18 at 13:04; Stop 02/21/18 at 13:05; Status DC A/P Assessment and Plan 32-year-old male with no significant past medical history presents [facility] the ED from senior living after a slip and fall, found to have right ankle fracture Moderately displaced right trimalleolar ankle fracture: acute. S/p mechanical trip and fall. -Continue pain control with [place] prn, increase p.o. [place] -Ortho consulted, plan for surgery today -CBC/BMP stable -Physical therapy, weightbearing status per Ortho post surgery Tobacco use, prior history of cocaine/heroin use: Does not appear to be in withdrawal -Monitor for any signs of withdrawal -Will provide nicotine patch if needed DVT prophylaxis: Teds/SCDs to the [facility] Date of Surgery: February 21, 2018 Preoperative Diagnosis: Right ankle trimalleolar fracture with displacement Postoperative Diagnosis: Same Procedure: Right ankle open reduction and internal fixation of trimalleolar fracture without fixation of the lip Discharge Planning PENDING SURGICAL AND PT AND OT CLEARANCE Jomar Kaufman DO February 22, 2018 09:43
[2018-02-22 11:29] VITALS: BP 153/83; PULSE 89; RESP 18; TEMP 98.1; O2SAT 97
--- NOTE | 2018-02-22 17:52 | PD.ORT.PN ---
Subjective Post Op Day #: 1 Subjective Remarks Patient is resting comfortably in bed with mild pain to the ankle. Objective Vitals Vital Signs Date Time Temp Pulse Resp B/P (MAP) Pulse Ox O2 Delivery O2 Flow Rate FiO2 02/22/18 13:16 18 02/22/18 11:29 98.1 89 18 153/83 (106) 97 02/22/18 08:54 18 02/22/18 08:20 97 21 02/22/18 07:35 98.2 74 18 128/62 (84) 96 02/22/18 04:00 97.6 75 17 132/68 (89) 96 02/22/18 00:00 98.3 73 18 132/81 (98) 95 02/21/18 20:00 97.9 98 17 167/74 (105) 96 I/O 02/21/18 02/21/18 02/21/18 02/22/18 02/22/18 02/22/18 07:00 15:00 23:00 07:00 15:00 23:00 Intake Total 360 ml 1200 ml 2100 ml Output Total 425 ml 1300 ml Balance 360 ml 775 ml 800 ml Intake Oral 360 ml 1000 ml IV Total 1100 ml Other 1200 ml Output Urine Total 300 ml 1300 ml Estimated Blood Loss 125 ml # Voids 2 # Bowel Movements 0 Result Diagram: 02/21/18 0421 02/21/18 0421 Procedures Right ankle ORIF of trimal fracture without fixation of posterior mal. Objective Remarks Dressing and splint are c/d/i. Patient moving toes well with + SILT distally. BCR X 5 Assessment & Plan Ortho Post Op Day #: 1 Problem List: Assessment and Plan POD #1: Right ankle ORIF of trimal fracture without fixation of posterior lip 1. Patient is NWB on his RLE 2. ASA 325 mg for DVT prophylaxis x one month 3. Ice to the right ankle PRN 4. Anticipatory discharge home to skilled nursing on Monday once medically cleared. Stable per ortho for discharge. 5. F/U in the office with Dr. Esqueda or DEVENDRA Lee in 1-2 weeks Constnatin Veras February 22, 2018 17:52
[2018-02-22 20:00] VITALS: BP 141/69; PULSE 89; RESP 21; TEMP 97.9; O2SAT 95
[2018-02-23] VITALS: BP 141/84; PULSE 72; RESP 20; TEMP 98.4; O2SAT 96
[2018-02-23] MEDS: ACETAMINOPHEN/HYDROcodone 325 MG/10 MG TAB PO PRN ×3 (00:59→13:37)
[2018-02-23] MEDS: DEXT 5%-NACL 0.45% 1000 ML INJ 1,000 ML IV SCH ×2 (01:02→13:07)
[2018-02-23] MEDS: DOCUSATE SODIUM 50 MG/SENNA 8.6 MG TAB PO SCH ×2 (01:02→07:34)
[2018-02-23 04:00] VITALS: BP 140/63; PULSE 82; RESP 21; TEMP 97.8; O2SAT 97
[2018-02-23 07:12] LABS: AUTOMATED NEUTROPHIL # 3.7 TH/MM3 (1.8-7.7); BASOPHIL % 0.5 % (0.0-2.0); EOSINOPHIL # 0.1 TH/MM3 (0-0.4); EOSINOPHIL % 1.4 % (0.0-4.0); HEMATOCRIT 40.2 % (39.0-51.0); HEMOGLOBIN 13.7 GM/DL (13.0-17.0); LYMPH % 37.8 % (9.0-44.0); LYMPHOCYTE # 2.9 TH/MM3 (1.0-4.8); MEAN CELL VOLUME 93.8 FL (80.0-100.0); MEAN CORPUSCULAR HEMOGLOBIN 31.9 PG (27.0-34.0); MONOCYTE # 0.8 TH/MM3 (0-0.9); NEUT % 49.3 % (16.0-70.0); PLATELET COUNT 262 TH/MM3 (150-450); RED BLOOD COUNT 4.28 MIL/MM3 (4.50-5.90); RED CELL DISTRIBUTION WIDTH 12.6 % (11.6-17.2); WHITE BLOOD COUNT 7.6 TH/MM3 (4.0-11.0)
[2018-02-23] MEDS: MULTIVITAMINS/MINERALS THERAPEUTIC TAB PO SCH (07:34)
[2018-02-23] MEDS: ASPIRIN 325 MG TAB PO SCH (07:34)
[2018-02-23 07:46] LABS: ALBUMIN 3.7 GM/DL (3.4-5.0); ALT (GPT) 24 U/L (12-78); AST (GOT) 15 U/L (15-37); BICARBONATE 28.4 MEQ/L (21.0-32.0); BLOOD UREA NITROGEN 18 MG/DL (7-18); CALCIUM 9.2 MG/DL (8.5-10.1); CHLORIDE 104 MEQ/L (98-107); CREATININE 0.89 MG/DL (0.60-1.30); GLOMERULAR FILTRATION RATE 98 ML/MIN (>89); GLUCOSE,RANDOM 84 MG/DL (74-106); MAGNESIUM 2.3 MG/DL (1.5-2.5); SODIUM (NA) 140 MEQ/L (136-145)
[2018-02-23 07:55] LABS: ALKALINE PHOSPHATASE 80 U/L (45-117); FREE T4 1.54 NG/DL (0.76-1.46); PHOSPHORUS 3.1 MG/DL (2.5-4.9); TOTAL BILIRUBIN ADULT 0.3 MG/DL (0.2-1.0); TOTAL PROTEIN 7.7 GM/DL (6.4-8.2)
[2018-02-23 08:00] VITALS: BP 138/83; PULSE 51; RESP 17; TEMP 98.1; O2SAT 97
--- NOTE | 2018-02-23 09:29 | HHI.DS ---
Discharge Summary Admission Date February 20, 2018 at 10:43 Discharge Date: February 23, 2018 Admitting Diagnosis Trimalleolar fracture right ankle (1) Trimalleolar fracture of right ankle ICD Code: S82.851A - Displaced trimalleolar fracture of right lower leg, initial encounter for closed fracture Status: Acute Procedures Date of Surgery: February 21, 2018 Preoperative Diagnosis: Right ankle trimalleolar fracture with displacement Postoperative Diagnosis: Same Procedure: Right ankle open reduction and internal fixation of trimalleolar fracture without fixation of the lip Brief History - From Admission Obtained from admitting physicians history and physical 32 years old male came from the present with right ankle pain after he sustained a fall, ankle pain is 9 out of 10. Patient denied losing consciousness or hitting his head, no headache or neck pain, no chest pain or short of breath no dizziness or lightheaded no abdominal pain diarrhea constipation, in ED orthopedic consulted, decided on taking patient to surgery tomorrow since patient already had a meal at 5 AM this morning CBC/BMP: 02/23/18 0507 02/23/18 0507 Significant Findings Laboratory Tests Test 02/20/18 10:20 02/21/18 04:21 02/23/18 05:07 Monocytes (%) (Auto) 11.7 % (0.0-8.0) 10.3 % (0.0-8.0) 11.0 % (0.0-8.0) Activated Partial Thromboplast Time 23.1 SEC (24.3-30.1) Red Blood Count 4.28 MIL/MM3 (4.50-5.90) Free Thyroxine 1.54 NG/DL (0.76-1.46) Imaging Last Impressions Ankle X-Ray 02/21/18 0000 Signed Impressions: CONCLUSION: Successful ORIF. PE at Discharge GENERAL: Awake alert and oriented 3 talkative and cooperative. Guard is at bedside SKIN: Warm and dry. CARDIOVASCULAR: Regular rate and rhythm. S1-S2 no S3 or S4 no heave or thrill or rub or gallop RESPIRATORY: No accessory muscle use. Clear to auscultation. Breath sounds equal bilaterally. MUSCULOSKELETAL: Extremities without clubbing, cyanosis, or edema. No obvious deformities. NEUROLOGICAL: Awake and alert. No obvious cranial nerve deficits. Motor grossly within normal limits. Five out of 5 muscle strength in the arms and legs. Normal speech. Right lower extremity is dressed and wrapped Left lower extremity has handcuffed in place Hospital Course 32-year-old male with no significant past medical history presents [facility] the ED from [facility] after a slip and fall, found to have moderately displaced right trimalleolar ankle fracture status post right ankle ORIF with Dr. Esqueda. Patient had a routine postoperative course with continued pain medication, physical therapy and bowel regimen. Nonweightbearing to her right lower extremity. At this time, patient has gained maximum benefit from hospitalization and is ready to be discharged to [facility]. Pt Condition on Discharge: Good Discharge Disposition: Discharge Home Discharge Time: <= 30 minutes Discharge Instructions DIET: Follow Instructions for: As Tolerated, No Restrictions Activities you can perform: Non Weight Bearing Follow up Referrals: Orthopedics with Jeremiah Esqueda MD New Medications: Aspirin (Aspirin) 325 Mg Tab 325 MG PO DAILY for Prevent Blood Clot, #30 TAB 0 Refills Crutch/Aluminum/Adult (Crutch/Aluminum/Adult) 1 Mis Mis EA .XX DIRECTED, #1 Hydrocodone-Acetaminophen (Hydrocodone-Acetaminophen) 10-325 mg Tab 1-2 TAB PO Q4H PRN for PAIN, #50 TAB 0 Refills Nila Rutherford MD February 23, 2018 09:28
[2018-02-23 10:02] VITALS: O2SAT 97
[2018-02-23 14:50] LABS: HEMOGLOBIN A1C 4.9 % (4.3-6.0)
== END 2018-02-23 14:16 | disposition short-term general hospital (02) | DRG 494 ==
LOC: NEPD 08:49 → NEDA 10:43 → N06A 12:38
PROVIDERS: ADMIT Family Medicine; ATTEND Family Medicine
PROC: 0QSG04Z Reposition Right Tibia with Internal Fixation Device, Open Approach (ICD-10-PCS; principal; 2018-02-21 10:03)
DX: S82.851A Displaced trimalleolar fracture of right lower leg, initial encounter for closed fracture (principal); F11.10 Opioid abuse, uncomplicated; Z72.0 Tobacco use; W19.XXXA Unspecified fall, initial encounter
CPT/HCPCS: 73610; 76000; 80048; 80053; 83036; 83735; 84100; 84439; 84443; 85025; 85610; 85730; 94150; 99285; C1713; J0131; J0690; J1100; J1580; J1644; J2250; J2270; J2405; J2710; J3010; J3370; J7120